=== PATIENT | male | born 1950 | race Caucasian/White ===

== ENCOUNTER → 2016-06-25 | Outpatient (CLI) | payer OTHER, MEDICARE | LOC: FIMAGING 10:09 | PROVIDERS: ATTEND Urology | DX: Z08 Encounter for follow-up examination after completed treatment for malignant neoplasm (principal); Z90.5 Acquired absence of kidney; Z85.528 Personal history of other malignant neoplasm of kidney ==

== ENCOUNTER → 2016-11-27 | Outpatient (CLI) | payer OTHER, MEDICARE | LOC: BHFA 10:00 | PROVIDERS: ATTEND Internal Medicine Cardiovascular Disease | DX: I35.0 Nonrheumatic aortic (valve) stenosis (principal); I25.10 Atherosclerotic heart disease of native coronary artery without angina pectoris; I10 Essential (primary) hypertension; E78.5 Hyperlipidemia, unspecified; I49.3 Ventricular premature depolarization ==

== ENCOUNTER → 2016-12-11 | Outpatient (CLI) | payer OTHER, MEDICARE | LOC: BHFA 14:00 | PROVIDERS: ATTEND Internal Medicine Cardiovascular Disease | DX: I35.1 Nonrheumatic aortic (valve) insufficiency (principal) ==

== ENCOUNTER 2016-12-26 17:09 | Inpatient (IN) | payer OTHER, MEDICARE ==
--- NOTE | 2016-12-26 17:33 | CPEKG ---
Heart Rate: 54 RR Interval: 1111 P-R Interval: 200 QRSD Interval: 110 QT Interval: 440 QTC Interval: 417 P [place]: 53 QRS [place]: -30 T Wave [place]: 69 EKG Severity - ABNORMAL ECG - EKG Impression: SINUS RHYTHM EKG Impression: SUPRAVENTRICULAR BIGEMINY EKG Impression: NONSPECIFIC INTRAVENTRICULAR CONDUCTION DELAY Electronically Signed By: Liliana Veliz 26-Dec-2016 21:35:01
[2016-12-26] MEDS ORDERED: ASPIRIN 81 MG CHEWABLE TAB ONE (17:34)
[2016-12-26] MEDS ORDERED: ASPIRIN 81 MG CHEWABLE TAB PO ONE (17:39)
[2016-12-26] MEDS ORDERED: MAG HYDROX/AL HYDROX/SIMETH 30 ML UDCUP PO ONE (17:39)
[2016-12-26] MEDS ORDERED: HYOSCYAMINE SULFATE 0.125 MG TAB PO ONE (17:39)
[2016-12-26] MEDS ORDERED: LIDOCAINE 2% VISCOUS 15 ML UDCUP PO ONE (17:39)
--- NOTE | 2016-12-26 17:39 | EDPHY ---
H & P Stated Complaint: CP x 2 hours, clammy. radiates to right collar bone HPI/ROS: CHIEF COMPLAINT: Chest pain HISTORY OF PRESENT ILLNESS: Patient complains of chest pain x2 hours. He was at rest when this started. Located to the left side of the chest. Radiates to the right collarbone. Rated as a 4/10. It has been constant in duration. Currently a 2/10. Was not worsened with exertion when he walked dog. It is associated with diaphoresis and feeling clammy. Minimal shortness of breath. No abdominal pain. Mild nausea at 1st. Currently no nausea. No vomiting. No fever. No recent travel , trauma or surgery. History is significant for coronary artery disease status post 3 stents 2 years ago, hypertension, dyslipidemia and 1 episode of pulmonary embolism 5 years ago. He was taken off of his Effient. He did take 81 mg of aspirin this morning. He took antacid after the pain started did not improved. The patient feels that this is related to acid reflux, although he does not have a diagnosis of this. No other associated complaints or modifying factors. REVIEW OF SYSTEMS: Ten systems reviewed and are negative unless otherwise noted in the HPI PCP: Dr. Rangel SPECIALISTS: Dr. Irina Munson PAST MEDICAL HISTORY: Hypertension, coronary artery disease with 3 stents, PE, Graves disease in remission, renal cell carcinoma status post surgical removal. Mitral valve regurgitation PAST SURGICAL HISTORY: Renal cell carcinoma excision, right lower extremity fracture repair, bilateral knee laparoscopy these SOCIAL HISTORY: Nonsmoker. Occasional alcohol. Occasional marijuana. Lives in [place]. Works in advertising FAMILY HISTORY: Noncontributory EXAMINATION General Appearance: Alert, no distress, mildly diaphoretic Head: normocephalic, atraumatic Eyes: Pupils equal and round, no conjunctival pallor or injection ENT, Mouth: Mucous membranes moist. Airway patent Neck: Normal inspection, supple, non-tender Respiratory: Lungs are clear to auscultation Cardiovascular: Regular rate and rhythm.. Pulses intact distally. There is a systolic murmur consistent with his diagnosis Gastrointestinal: Abdomen is soft and nontender. Back: non-tender, no bony abnormalities Neurological: GCS 15 A&O, nonfocal, normal gait Skin: Warm and mildly diaphoretic. No petechiae or purpura. No other rash Extremities: Nontender, no pedal edema Psychiatric: Mood and affect normal DIFFERENTIAL DIAGNOSES: Including but not limited to ACS, PE, reflux, pericarditis, myocarditis, stable angina, unstable angina MDM: 5:40 p.m. Chest pain of 2 hours duration. This is left-sided pain that radiates to the right. He was diaphoretic and clammy. He does have a history significant for coronary artery disease status post 3 stents 2 years ago and 1 episode of pulmonary embolism 5 years ago. Vital signs are stable. EKG does not show acute ischemia but is not completely normal. He is awake and alert no acute distress. Laboratory studies have been ordered. Chest x-ray ordered. Aspirin has been ordered. Additionally I have ordered GI cocktail and he is on a manager grocery. Dr. Veliz is aware the patient's history and physical examination. 6:15 p.m. Patient remains stable. D-dimer is negative. Troponin is pending. Chest x- ray is unremarkable as read by me. I have re-evaluated the patient. I discussed admission to the hospitalist his troponin is negative. He is agreeable with this plan. 6:40 p.m. Troponin is negative. Will discuss the case with hospitalist for admission. 6:55 p.m. Case discussed with hospitalist Dr. Sanchez. Patient will be admitted to her service. He is admitted in stable condition. Source: Patient Exam Limitations: No limitations - Personal History Current Tetanus/Diphtheria Vaccine: Yes Current Tetanus Diphtheria and Acellular Pertussis (TDAP): Yes Tetanus Vaccine Date: < 10 years - Medical/Surgical History Hx Asthma: No Hx Chronic Respiratory Disease: No Hx Diabetes: No Hx Cardiac Disease: Yes Hx Renal Disease: No Hx Cirrhosis: No Hx Alcoholism: No Hx HIV/AIDS: No Hx Splenectomy or Spleen Trauma: No Other PMH: grave's disease, DVT, PVCs, Cardiac stents - Social History Smoking Status: Never smoked Constitutional: Initial Vital Signs Temperature (C) 98.2 F 12/26/16 17:16 Heart Rate 68 12/26/16 17:16 Respiratory Rate 17 12/26/16 17:16 Blood Pressure 147/70 H 12/26/16 17:16 O2 Sat (%) 98 12/26/16 17:16 O2 Delivery Mode Room Air Allergies/Adverse Reactions: No Known Allergies Allergy (Verified 12/26/16 19:23) Home Medications: Medication Instructions Recorded Nitroglycerin [Nitrostat 0.4 mg 0.4 mg SL Q5M PRN #1 btl 03/02/14 (*)] Rosuvastatin Calcium [Crestor] 10 mg PO HS #30 tab 03/02/14 traZODone [traZODONE 50MG (RX)] 50 mg PO HS 11/27/14 Aspirin [Aspirin 81mg (*)] 81 mg PO DAILY 12/26/16 Valsartan [Diovan (*)] 80 mg PO DAILY 12/26/16 buPROPion XL [Wellbutrin Xl] 300 mg PO DAILY 12/26/16 Medical Decision Making - Diagnostics Imaging Results: Imaging Impressions Chest X-Ray 12/26/16 17:39 Impression: 1. No active cardiac pulmonary disease seen. Poor inspiration noted. - Data Points Laboratory Results: Laboratory Results 12/26/16 17:40 12/26/16 17:40 12/26/16 12/26/16 12/26/16 17:40 17:40 17:40 WBC 6.27 10^3/uL 10^3/uL (3.80-9.50) RBC 5.19 10^6/uL 10^6/uL (4.40-6.38) Hgb 15.0 g/dL g/dL (13.7-17.5) Hct 44.6 % % (40.0-51.0) MCV 85.9 fL fL (81.5-99.8) MCH 28.9 pg pg (27.9-34.1) MCHC 33.6 g/dL g/dL (32.4-36.7) RDW 13.8 % % (11.5-15.2) Plt Count 176 10^3/uL 10^3/uL (150-400) MPV 9.0 fL fL (8.7-11.7) Neut % (Auto) 54.4 % % (39.3-74.2) Lymph % (Auto) 32.4 % % (15.0-45.0) [place] % (Auto) 9.9 % % (4.5-13.0) Eos % (Auto) 2.4 % % (0.6-7.6) Baso % (Auto) 0.6 % % (0.3-1.7) Nucleat RBC Rel Count 0.0 % % (0.0-0.2) Absolute Neuts (auto) 3.41 10^3/uL 10^3/uL (1.70-6.50) Absolute Lymphs (auto) 2.03 10^3/uL 10^3/uL (1.00-3.00) Absolute Monos (auto) 0.62 10^3/uL 10^3/uL (0.30-0.80) Absolute Eos (auto) 0.15 10^3/uL 10^3/uL (0.03-0.40) Absolute Basos (auto) 0.04 10^3/uL 10^3/uL (0.02-0.10) Absolute Nucleated RBC 0.00 10^3/uL 10^3/uL (0-0.01) Immature Gran % 0.3 % % (0.0-1.1) Immature Gran # 0.02 10^3/uL 10^3/uL (0.00-0.10) PT 13.4 SEC SEC (12.0-15.0) INR 1.03 (0.83-1.16) APTT 25.9 SEC SEC (23.0-38.0) D-Dimer 0.29 ug/mLFEU ug/mLFEU (0.00-0.50) Sodium 137 mEq/L mEq/L (134-144) Potassium 4.0 mEq/L mEq/L (3.5-5.2) Chloride 103 mEq/L mEq/L (97-110) Carbon Dioxide 24 mEq/l mEq/l (22-31) Anion Gap 10 mEq/L mEq/L (8-16) BUN 20 mg/dL mg/dL (7-23) Creatinine 1.0 mg/dL mg/dL (0.7-1.3) Estimated GFR > 60 Glucose 77 mg/dL mg/dL (70-100) Calcium 10.2 mg/dL mg/dL (8.5-10.4) Troponin I < 0.012 ng/mL ng/mL (0.000-0.034) NT-Pro-B Natriuret Pep 48 pg/mL pg/mL (0-125) Lipase 209 IU/L IU/L (23-300) Medications Given: Rosuvastatin Calcium (Crestor) 10 mg PO HS [facility] Stop: 06/24/17 20:59 Last Admin: 12/26/16 21:58 Dose: 10 mg Trazodone HCl (Trazodone) 50 mg PO HS JOSEFA Stop: 06/24/17 20:59 Last Admin: 12/26/16 21:58 Dose: 50 mg Discontinued Medications Al Hydroxide/Mg Hydroxide (Maalox Susp) 30 ml PO ONCE ONE Stop: 12/26/16 17:40 Last Admin: 12/26/16 17:54 Dose: 30 ml Aspirin (Aspirin) 324 mg PO EDNOW ONE Stop: 12/26/16 17:40 Last Admin: 12/26/16 17:45 Dose: 324 mg Hyoscyamine Sulfate (Levsin, Hyomax-Sl) 0.25 mg PO ONCE ONE Stop: 12/26/16 17:40 Last Admin: 12/26/16 17:54 Dose: 0.25 mg Lidocaine (Lidocaine 2% Viscous) 15 ml PO ONCE ONE Stop: 12/26/16 17:40 Last Admin: 12/26/16 17:54 Dose: 15 ml Departure - Departure Disposition: [facility] Inpatient Acute Clinical Impression: Acute chest pain CAD (coronary artery disease) Qualifiers: Coronary Disease-Associated Artery/Lesion type: [place] artery [place] vs. transplanted heart: [place] heart Associated angina: with stable angina Qualified Code(s): I25.118 - Atherosclerotic heart disease of [place] coronary artery with other forms of angina pectoris Condition: Good
[2016-12-26 17:56] LABS: % IMMATURE GRANULYOCYTES 0.3 % (0.0-1.1); ABSOLUTE IMMATURE GRANULOCYTES 0.02 10^3/uL (0.00-0.10); ADD DIFF? NO; ADD MORPH? NO; ADD SCAN? NO; ATYPICAL LYMPHOCYTE FLAG 10 (0-99); FRAGMENT RBC FLAG 0 (0-99); HEMATOCRIT 44.6 % (40.0-51.0); LEFT SHIFT FLG 0 (0-99); LIPEMIA HEMOLYSIS FLAG 80 (0-99); MEAN CELL HEMOGLOBIN 28.9 pg (27.9-34.1); MEAN CELL HEMOGLOBIN CONCENTR. 33.6 g/dL (32.4-36.7); MEAN CELL VOLUME 85.9 fL (81.5-99.8); PLATELET CLUMPS FLAG 0 (0-99); PLATELET COUNT 176 10^3/uL (150-400); RED BLOOD CELL COUNT 5.19 10^6/uL (4.40-6.38); RED CELL DISTRIBUTION WIDTH 13.8 % (11.5-15.2)
[2016-12-26 18:00] LABS: INR 1.03 (0.83-1.16); PROTIME(PATIENT) 13.4 SEC (12.0-15.0)
[2016-12-26 18:01] LABS: APTT 25.9 SEC (23.0-38.0)
[2016-12-26 18:14] LABS: ANION GAP 10 mEq/L (8-16); CALCIUM 10.2 mg/dL (8.5-10.4); CARBON DIOXIDE 24 mEq/l (22-31); CHLORIDE 103 mEq/L (97-110); GLOMERULAR FILTRATION RATE > 60; GLUCOSE 77 mg/dL (70-100); SODIUM 137 mEq/L (134-144)
[2016-12-26 18:31] LABS: TROPONIN I < 0.012 ng/mL (0.000-0.034)
[2016-12-26] MEDS ORDERED: NITROGLYCERIN 0.4 MG BTL SL PRN (19:30)
[2016-12-26] MEDS ORDERED: ONDANSETRON 4 MG/2 ML VIAL IVP PRN (19:31)
[2016-12-26] MEDS ORDERED: ACETAMINOPHEN 325 MG TAB PO PRN (19:31)
--- NOTE | 2016-12-26 20:07 | GHP ---
[f rep st] HISTORY AND PHYSICAL DATE OF ADMISSION: 12/26/2016 CHIEF COMPLAINT: Chest pain. HISTORY OF PRESENT ILLNESS: The patient is a 66-year-old male, who complains of left-sided chest jordyn n that lasted 2 hours today. It was onset at rest, dull pain, radiated to his right collar bone, up his right neck. There is constant 2/10. At this point, chest pain has resolved. There is just a sl ight residual pain at the collar bone. It did not change with any exertion. He was very diaphoretic and clammy at onset. The pain was nonpleuritic without shortness of breath. PAST MEDICAL HISTORY: 1. Coronary artery disease, status post stents 2013. 2. History of DVT and pulmonary embolus x1. 3. Graves disease. 4. Mitral regurgitation. He has been told he will need a valve replacement in the future. 5. Renal cell carcinoma status post nephrectomy. PAST SURGICAL HISTORY: Spinal surgery. MEDICATIONS: Please see computer record for full detailed list. ALLERGIES: No known drug allergies. SOCIAL HISTORY: No smoking. Occasional alcohol. Occasional marijuana. Lives with his , and th ey have 3-year-old twins together. REVIEW OF SYSTEMS: Complete review of systems obtained. Review of systems negative regarding consti tutional, HEENT, GI, pulmonary, cardiovascular, , hematology, skin, muscular, endocrine, psych, exc ept for positives and negatives as in HPI. FAMILY HISTORY: Father had coronary disease in his 80s. PHYSICAL EXAMINATION: GENERAL: Well-developed, well-nourished male, in no acute distress. VITAL SI GNS: Temperature is 36.8, pulse 60, blood pressure 136/60, saturating 97% on room air. HEENT: Norm al conjunctivae. Pupils round, react to light. ENT normal ears and nose. Hearing intact. Normal t eeth. Oropharynx moist. NECK: Trachea midline. No thyromegaly. CHEST: Normal respiratory effort . Lungs clear to auscultation bilaterally. CARDIOVASCULAR: Regular rhythm. No murmur. No extremi ty edema. ABDOMEN: Soft, nontender. No hepatosplenomegaly. SKIN: Warm, dry, intact. No rash. M USCULOSKELETAL: No cyanosis or clubbing. Strength 5/5 upper and lower extremities. NEURO: Cranial nerves intact. Normal sensation to light touch. PSYCH: Alert and oriented x3. Normal affect. No rmal judgment and insight. Normal memory. LABORATORY DATA: White count 6.27, hematocrit 44.6, platelets 176, sodium 137, potassium 4.0, chlori de 103, bicarb 24, BUN 20, creatinine 1.0, glucose 77. Troponins negative. BNP is 48, INR is 1.03. D-dimer is negative. EKG viewed by me. My personal interpretation is bigeminy. No ST or T wave changes. Chest x-ray is negative. ASSESSMENT/PLAN: 1. Chest pain. He does have a history of previous coronary artery disease and stents in 2013. We w ill follow serial troponins and EKGs. We will continue with aspirin and statin, and check a lipid pa yoanna in the morning. We will order exercise stress test for morning. 2. Mitral regurgitation. He had an echocardiogram at [facility] within the last couple of weeks. So, I do not think it needs to be repeated at this time. The report is currently not available to me. 3. Graves disease. We will check a TSH. CODE STATUS: Full. ADMISSION STATUS: We will admit to observation. Anticipate discharge home tomorrow if stress testin g is negative. DVT PROPHYLAXIS: He is low risk. /[id number]/MODL
[2016-12-26] MEDS: ROSUVASTATIN CALCIUM 10 MG TAB PO SCH (21:58)
[2016-12-26] MEDS: traZODone 50 MG TAB PO SCH (21:58)
--- NOTE | 2016-12-27 06:33 | CPEKG ---
Heart Rate: 48 RR Interval: 1250 P-R Interval: 204 QRSD Interval: 106 QT Interval: 452 QTC Interval: 404 P [place]: 58 QRS [place]: -40 T Wave [place]: -30 EKG Severity - ABNORMAL ECG - EKG Impression: SINUS RHYTHM EKG Impression: MULTIPLE ATRIAL PREMATURE COMPLEXES EKG Impression: BORDERLINE IVCD WITH LAD EKG Impression: BORDERLINE T ABNORMALITIES, DIFFUSE LEADS Electronically Signed By: Murray Morris 29-Dec-2016 17:35:23
[2016-12-27 06:48] LABS: CHOLESTEROL 115 mg/dL (140-220); CHOLESTEROL/HDL RATIO 4.11 RATIO (1.00-4.97); HIGH DENSITY LIPOPROTEIN 28 mg/dL (40-65); LDL/HDL RATIO 2.18 RATIO (1.00-3.64); LOW DENSITY LIPOPROTEIN 61 mg/dL (80-100); NON-HIGH DENSITY LIPOPROTEIN 87 mg/dL (90-129); TRIGLYCERIDE 133 mg/dL (40-150); VERY LOW DENSITY LIPOPROTEINS 26 mg/dL (8-25)
[2016-12-27 06:59] LABS: TROPONIN I < 0.012 ng/mL (0.000-0.034)
[2016-12-27] MEDS: VALSARTAN 80 MG TAB PO SCH (09:26)
[2016-12-27] MEDS: buPROPion XL 150 MG TAB PO SCH (09:26)
[2016-12-27] MEDS: ASPIRIN 81 MG CHEWABLE TAB PO SCH (09:27)
[2016-12-27] MEDS ORDERED: FLU VACC QS 2017-18 (3YR+)/PF 0.5 ML SYR (FLUARIX QUAD) IM ONE (09:30)
[2016-12-27] MEDS ORDERED: PNEUMOC 13-VAL CONJ-DIP CRM/PF 0.5 ML SYR IM ONE (09:30)
--- NOTE | 2016-12-27 13:30 | CPR ---
[f rep st] NONINVASIVE CARDIAC PROCEDURE REPORT STUDY PERFORMED: Exercise treadmill of exercise treadmill MPI study. INDICATION FOR PROCEDURE: Patient with known history of coronary artery disease , hospital admission for chest pressure. PRE: After obtaining informed consent, the patient was placed on electrocardiogram. Initial EKG shows sinus rhythm, first-degree AV block, normal axis, poor R-wave progression in anterior leads, flattened T-waves in aVL. Premature atrial contractions. Patient denies any chest pain, shortness of breath, or symptoms suggesting of ischemia. Initial saturation greater than 96, initial blood pressure of 116/78, saturation 96% on room air. STRESS: The patient was placed on exercise treadmill, following standard Arnav protocol, with the following findings: 1. Patient exercised for 7 minutes and 40 seconds. 2. 8.9 METs. 3. Patient obtained a heart rate of 135 beats per minute, which was 88% of MPHR. 4. Patient had no chest pain or symptoms suggesting of ischemia throughout testing. 5. Patient had no significant ST shifts at peak exercise to suggest ischemia. 6. Patient was noted in the 3rd stage of exercise to have premature ventricular contractions, 1 noted couplet, and then converting into sinus rhythm with bigeminal PVCs. Patient was asymptomatic of the bigeminy PVCs. This lasted up to within 30 seconds of recovery, converting back to regular sinus rhythm. There was no VT or any other malignant arrhythmias noted. 7. BP variations: At rest 116/78, stress at peak exercise 172/76. 8. SPO2 remained greater than 90% throughout the testing. 9. Test was stopped due to maximum effort. 10. [place] treadmill score of 7, placing him at low cardiovascular risk. RECOVERY: Within 5 minutes, the patient's heart rate returned back to baseline. He remained asymptomatic. No further premature ventricular contractions were noted. He was noted at rest to resume having premature atrial contractions. IMPRESSION: A 66-year-old male with known history of coronary artery disease with previous stenting of the left anterior descending undergoing exercise MPI study for evaluation of ischemia due to onset of chest pressure and pain. Patient asymptomatic of symptoms suggesting of ischemia throughout the exercise treadmill, no significant ST shifts suggesting of ischemia during exercise, but the patient was noted to have 1 episode of premature ventricular couplet, and was noted to go into bigeminal preventricular contractions at peak exercise. He was asymptomatic during this time and reverted back to sinus rhythm within 30 seconds of recovery. His vital signs remained stable. Discussed with Dr. Hallman , with recommendation of further evaluation with MPI study and MPI imaging results. The patient's vital signs are stable and was sent to Nuclear Medicine for post-stress imaging. The hospitalist services have been notified of exercise treadmill testing results. /[id number]/MODL MTDD
--- NOTE | 2016-12-27 15:52 | ASMTCMCOM ---
CM Note CM Note Notes: Reviewed chart re: d/c poc, pt's progress. Pt admitted w/ CP, hx of CAD, DVT, Graves dx, MR, renal cell carcinoma. Pt lives w/ his and children. Nuclear med stress test pending. Anticipate pt will likely d/c home independently w/ family support when medically stable. CM will cont to follow. Date Signed: 12/27/2016 03:51 PM Electronically Signed By:Tatum Soler RN
--- NOTE | 2016-12-27 16:47 | PDCARCONS ---
Cardiology Consult Reason for Consult: 1) Chest pain. 2) History of CAD with prior PCI. 3) Abnormal nuclear perfusion stress images. Chief Complaint: Chest pain. Requesting Physician: Dr. Shelby Briceno History of Present Illness: Mr. Tracey is a 66-year-old male with a history of CAD and prior PCI. He presented to the hospital yesterday reporting an episode of left-sided chest discomfort that lasted approximately 2 hours. It was dull and radiated up to the right side of the neck. It was fairly mild being rated as 2 on the scale of 10. There was some diaphoresis initially. There was no shortness of breath, palpitations, or lightheadedness. He presented to the emergency room where his initial ECG was unremarkable. Overnight serial troponin levels all came back at < 0.012. Earlier today he underwent an exercise stress test with nuclear imaging. He exercised 8 minutes of the Arnav protocol reaching 88% MPHR without chest pain or ECG changes. Only the stress images have been performed up to this point. Dr. Briceno received a phone call from radiology that there was a significant inferior wall perfusion abnormality. She contacted me to discuss whether or not the patient should have cardiac catheterization this afternoon versus completing his study with rest imaging tomorrow. History Information - Allergies/Home Medication List Allergies/Adverse Reactions: No Known Allergies Allergy (Verified 12/26/16 19:23) Home Medications: traZODone [traZODONE 50MG (RX)] 50 mg PO HS 11/27/14 [Last Taken 12/25/16] Aspirin [Aspirin 81mg (*)] 81 mg PO DAILY 12/26/16 [Last Taken 12/26/16] Valsartan [Diovan (*)] 80 mg PO DAILY 12/26/16 [Last Taken 12/26/16] buPROPion XL [Wellbutrin Xl] 300 mg PO DAILY 12/26/16 [Last Taken 12/26/16] Past Medical History: - Past Medical History coronary artery disease, DVT, pulmonary embolism Additional medical history: Grave's disease. Cardiac history details: In February of 2014, a cardiac catheterization demonstrated significant disease of the left anterior descending involving the origin of the principal diagonal branch. He underwent bifurcation PCI using the "culotte" technique. This procedure was performed from the radial approach and limitations on guide catheter size precluded performing a thorough "kissing balloon" post- dilatation. He was taken back to the cardiac mechanical shop laborer approximately one week later and had additional postdilatation including "kissing balloon" performed via the femoral approach. Eleven months later, in January of 2015, he underwent a repeat catheterization to assess the patency of his stents in preparation to take him off of dual antiplatelet therapy in order to allow surgery for renal cell cancer to take place. His stents were widely patent at that time and there had been no progression of CAD in other territories. He also has a history of mitral regurgitation which is moderate to severe. He underwent an echocardiogram in our office on December 11. That study demonstrated his known mitral regurgitation and also demonstrated that his left ventricular end diastolic dimension had increased to 6 cm from a previous value of [address] Munson told him at his October appointment that he was likely nearing the time for valve surgery. He is currently scheduled for a transesophageal echocardiogram on January 12 and a followup appointment with Dr. Munson on . - Surgical History Additional surgical history: Back surgery. Nephrectomy - Family History Additional family history: Noncontributory - Social History Alcohol Use: Occasionally Drug Use: Marijuana Physical Exam Physical Exam: Temp Pulse Resp BP Pulse Ox 37.1 C 59 L 18 125/56 H 96 12/27/16 12:00 12/27/16 12:00 12/27/16 12:00 12/27/16 12:00 12/27/16 12:00 Constitutional: no apparent distress, appears nourished Eyes: anicteric sclera Ears, Nose, Mouth, Throat: moist mucous membranes Cardiovascular: regular rate and rhythym, no murmur, rub, or gallop Respiratory: no respiratory distress, clear to auscultation Gastrointestinal: normoactive bowel sounds, soft, non-tender abdomen, no palpable masses Skin: warm, normal color, no rashes or abrasions Neurologic: AAOx3 Psychiatric: interacting appropriately, not anxious Lymph, Heme, Immunologic: no cervical LAD, no supraclavicular LAD Lab and Imaging 12/26/16 17:40 12/26/16 17:40 WBC 6.27 10^3/uL (3.80-9.50) 12/26/16 17:40 RBC 5.19 10^6/uL (4.40-6.38) 12/26/16 17:40 Hgb 15.0 g/dL (13.7-17.5) 12/26/16 17:40 Hct 44.6 % (40.0-51.0) 12/26/16 17:40 MCV 85.9 fL (81.5-99.8) 12/26/16 17:40 MCH 28.9 pg (27.9-34.1) 12/26/16 17:40 MCHC 33.6 g/dL (32.4-36.7) 12/26/16 17:40 RDW 13.8 % (11.5-15.2) 12/26/16 17:40 Plt Count 176 10^3/uL (150-400) 12/26/16 17:40 MPV 9.0 fL (8.7-11.7) 12/26/16 17:40 Neut % (Auto) 54.4 % (39.3-74.2) 12/26/16 17:40 Lymph % (Auto) 32.4 % (15.0-45.0) 12/26/16 17:40 Lander % (Auto) 9.9 % (4.5-13.0) 12/26/16 17:40 Eos % (Auto) 2.4 % (0.6-7.6) 12/26/16 17:40 Baso % (Auto) 0.6 % (0.3-1.7) 12/26/16 17:40 Nucleat RBC Rel Count 0.0 % (0.0-0.2) 12/26/16 17:40 Absolute Neuts (auto) 3.41 10^3/uL (1.70-6.50) 12/26/16 17:40 Absolute Lymphs (auto) 2.03 10^3/uL (1.00-3.00) 12/26/16 17:40 Absolute Monos (auto) 0.62 10^3/uL (0.30-0.80) 12/26/16 17:40 Absolute Eos (auto) 0.15 10^3/uL (0.03-0.40) 12/26/16 17:40 Absolute Basos (auto) 0.04 10^3/uL (0.02-0.10) 12/26/16 17:40 Absolute Nucleated RBC 0.00 10^3/uL (0-0.01) 12/26/16 17:40 Immature Gran % 0.3 % (0.0-1.1) 12/26/16 17:40 Immature Gran # 0.02 10^3/uL (0.00-0.10) 12/26/16 17:40 PT 13.4 SEC (12.0-15.0) 12/26/16 17:40 INR 1.03 (0.83-1.16) 12/26/16 17:40 APTT 25.9 SEC (23.0-38.0) 12/26/16 17:40 D-Dimer 0.29 ug/mLFEU (0.00-0.50) 12/26/16 17:40 Sodium 137 mEq/L (134-144) 12/26/16 17:40 Potassium 4.0 mEq/L (3.5-5.2) 12/26/16 17:40 Chloride 103 mEq/L (97-110) 12/26/16 17:40 Carbon Dioxide 24 mEq/l (22-31) 12/26/16 17:40 Anion Gap 10 mEq/L (8-16) 12/26/16 17:40 BUN 20 mg/dL (7-23) 12/26/16 17:40 Creatinine 1.0 mg/dL (0.7-1.3) 12/26/16 17:40 Estimated GFR > 60 12/26/16 17:40 Glucose 77 mg/dL (70-100) 12/26/16 17:40 Calcium 10.2 mg/dL (8.5-10.4) 12/26/16 17:40 Troponin I < 0.012 ng/mL (0.000-0.034) 12/27/16 06:20 NT-Pro-B Natriuret Pep 48 pg/mL (0-125) 12/26/16 17:40 Triglycerides 133 mg/dL (40-150) 12/27/16 06:20 Cholesterol 115 mg/dL (140-220) L 12/27/16 06:20 Cholesterol Risk Factr 0.8 (0.2-1.0) 12/27/16 06:20 LDL Cholesterol, Calc 61 mg/dL (80-100) L 12/27/16 06:20 LDL Risk Factor 0.8 (0.2-1.0) 12/27/16 06:20 VLDL Cholesterol 26 mg/dL (8-25) H 12/27/16 06:20 Non-HDL Cholesterol 87 mg/dL (90-129) L 12/27/16 06:20 HDL Cholesterol 28 mg/dL (40-65) L 12/27/16 06:20 LDL/HDL Ratio 2.18 RATIO (1.00-3.64) 12/27/16 06:20 Cholesterol/HDL Ratio 4.11 RATIO (1.00-4.97) 12/27/16 06:20 Lipase 209 IU/L (23-300) 12/26/16 17:40 TSH 1.860 uIU/mL (0.465-4.680) 12/27/16 06:20 Visualized and Interpreted Chest x-ray results: Yes Chest X-ray Interpretation: no infiltrate Visualized and Interpreted EKG results: Yes EKG additional interpertation: Normal sinus rhythm. No Q waves or conduction system abnormalities. No ischemic changes. A/P Assessment: This is a 66-year-old male who has a history of CAD with prior bifurcation PCI of the LAD-diagonal branch. He presents with somewhat atypical chest discomfort. He has ruled out for an acute coronary syndrome. There has been no evidence of CHF and no arrhythmias other than PVCs during his stress test. He also has a history of mitral regurgitation and a recent echocardiogram demonstrates that his left ventricle is beginning to dilate. He does have some dyspnea with exertion. Earlier today he underwent a stress test. He did not experience any chest discomfort and did not have any ischemic ECG changes. The nuclear images have not been formally reported but results were relayed to his hospitalist regarding an inferior defect. I have reviewed the perfusion scans and there appears to be a large territory affected in the inferior wall. However , I am suspicious that this may end up representing a false positive. I reviewed his previous catheterization studies. Apart from his LAD-diagonal disease, the rest of his coronary circulation is relatively normal appearing. He has a very large right coronary artery with significant inferior wall branches. If his nuclear stress test ends up suggesting reversibility and indicating a flow-limiting stenosis of this vessel, his stress test should have been markedly abnormal. Alternatively, if his resting scan demonstrates a fixed defect indicating a possible myocardial infarction, then a definite wall motion abnormality should have been seen on his echocardiogram from December 11 or. if you postulate that an [place] event occurred since the date of his echo, his troponin still should be significantly elevated. He is amenable to staying overnight and completing his imaging study tomorrow. I expect that he can then potentially be discharged. I do not think that he needs to go to the cardiac mechanical shop laborer this afternoon. Finally, I suspect that he WILL be going to the mechanical shop laborer sometime in the near future for preoperative angiography in preparation for valve surgery.
--- NOTE | 2016-12-27 16:53 | HOSPPROG ---
Hospitalist Progress Note Assessment/Plan: 66 yo male with h/o CAD and prior stents admitted with chest pain. Trops neg. Nuc study with inferior wall defect. Unclear if this may represent diaphragmatic shadow. Appreciate cardiology consult. Will need resting images in am. Will keep NPO again after midnight in case he needs angiogram. Discussed with Dr. Garner. -cont ASA, statin -resting nuc images in am MR - will require cath at some point prior to valve replacement H/O RCC s/p nephrectomy Full code Dispo - change to inpt for ongoing evaluation of chest pain and abnormal nuc study Subjective: Pt feels well. Denies CP or SOB. No complaints. Objective: Vital Signs Temp Pulse Resp BP Pulse Ox 36.8 C 69 19 123/59 H 95 12/27/16 16:49 12/27/16 16:49 12/27/16 16:49 12/27/16 16:49 12/27/16 16:49 12/26/16 12/27/16 12/28/16 05:59 05:59 05:59 Intake Total 150 Balance 150 PT 13.4 SEC (12.0-15.0) 12/26/16 17:40 INR 1.03 (0.83-1.16) 12/26/16 17:40 - Physical Exam Constitutional: no apparent distress Ears, Nose, Mouth, Throat: hearing normal Cardiovascular: regular rate and rhythym Respiratory: no respiratory distress Musculoskeletal: full muscle strength Neurologic: AAOx3 Psychiatric: interacting appropriately ICD10 Worksheet Patient Problems: Problems Problem Status Onset Acute chest pain Acute CAD (coronary artery disease) Acute Atelectasis of both lungs Acute Coronary artery disease Acute History of placement of stent in LAD coronary artery Acute Postoperative hypoxia Acute Renal cell carcinoma Acute Renal mass, left Acute
[2016-12-27] MEDS: ROSUVASTATIN CALCIUM 10 MG TAB PO SCH (20:04)
[2016-12-27] MEDS: traZODone 50 MG TAB PO SCH (22:26)
[2016-12-28 07:14] VITALS: BP 107/67; PULSE 64; RESP 18; TEMP 97.9; O2SAT 95
[2016-12-28] MEDS: ASPIRIN 81 MG CHEWABLE TAB PO SCH (07:47)
[2016-12-28] MEDS: buPROPion XL 150 MG TAB PO SCH (07:47)
[2016-12-28] MEDS: VALSARTAN 80 MG TAB PO SCH (07:48)
--- NOTE | 2016-12-28 13:07 | ASDISCHSUM ---
Discharge Information Plan Status:Home with No Needs Medically Cleared to Leave:12/28/2016 Discharge Date:12/28/2016 12:00 PM CM D/C Disposition:Home, Routine, Self-Care ADT D/C Disposition:Home, Routine, Self-Care Projected Discharge Date:12/28/2016 12:00 PM Transportation at D/C:Family Discharge Delay Reason: Follow-Up Date:12/28/2016 12:00 PM Discharge Slot:2 - 12:01 pm - 18:00 pm Final Diagnosis:CP, MR, Graves dx Placement Information Patient Contact Information Contact Name:MARIA L Relationship: Address:[address] City:[place] Alternate Phone: State/Zip Code:[place] [address] Email: Financial Information Financial Class: Primary Plan Desc:MEDICARE OUTPATIENT Primary Plan Number:[id number] Secondary Plan Desc:[employer]/MDR SUPPLEMENT Secondary Plan Number:[id number] Assessment Information [facility] CM Progress Note CM Note CM Note Notes: Reviewed chart re: d/c poc, pt's progress. Pt admitted w/ CP, hx of CAD, DVT, Graves dx, MR, renal cell carcinoma. Pt lives w/ his and children. Nuclear med stress test pending. Anticipate pt will likely d/c home independently w/ family support when medically stable. CM will cont to follow. Date Signed: 12/27/2016 03:51 PM Electronically Signed By:Tatum Soler RN [facility] CM Progress Note CM Note CM Note Notes: Reviewed chart re: d/c poc, pt's progress. Pt to discharge home today w/ family support and no identified needs. IM not signed; admission <48 hrs. Pt to f/u as directed. CM avail for any further issues or concerns. Date Signed: 12/28/2016 01:06 PM Electronically Signed By:Tatum Soler RN Intervention Information Intervention Type:*Occurence 72 Date of Service:12/26/2016 07:30 PM Patient Type:Inpatient Staff Member:MARLYN Cha, Teresa Hours:0.25 Discipline: Severity:1 (0-1 Hours) Comment:Occ 72 for 12/26/2016 as patient discha rged 12/28/16 11:03 (< 2 [place] LOS after patien t admission status changed from observation to inpatient).
--- NOTE | 2016-12-28 23:09 | GDS ---
[f rep st] DISCHARGE SUMMARY DISCHARGE DIAGNOSES: 1. Chest pain, resolved. 2. Coronary artery disease with prior stent. 3. Mitral regurgitation. CONSULTANTS: Boubacar Garner MD, Cardiology. HISTORY: For details, please see the history and physical dated December 26, 2016. In brief, the marylu salas is a 66-year-old male with a history of coronary artery disease and prior stenting in 2013, wh o presents to the emergency department with chest pain associated with diaphoresis and radiation, whi ch was nonpleuritic and there was no associated shortness of breath. The patient was admitted to the hospital for further evaluation. HOSPITAL COURSE: The patient was admitted to the cardiac telemetry unit. He had serial negative tro ponins. His EKG was nonischemic and showed bigeminy. Given his cardiac history, he underwent a [facility] myocardial perfusion scan which revealed a mildly decreased ejection fraction of 50%, di ffuse hypokinesis of the left ventricle and decreased uptake on stress imaging involving the inferior wall of the left ventricle. A cardiology consultation was obtained for consideration of angiogram v ersus resting images on the nuclear medicine study in the morning. Dr. Garner' impression was that this may have been a false positive and urgent catheterization was deferred. Resting images were pe rformed the following morning and revealed that the decreased uptake in the inferior wall of the left ventricle on prior stress imaging appeared to be compatible with diaphragmatic attenuation versus a fixed infarct without evidence of underlying ischemia. Therefore, the patient did not undergo urgent cardiac catheterization. It is noted that he will likely need angiography in the near future in pre paration for valve surgery for his mitral regurgitation. The patient remained chest pain-free and is hemodynamically stable on the day of discharge. DISPOSITION: The patient is discharged home in stable condition. FOLLOWUP: 1. The patient will follow up with [facility] January [address]ogram[address] 2[address]. Irina Munson at [facility] on January 24. DISCHARGE MEDICATIONS: Please see Jalbum for completed outpatient medication list. He will contin ue all outpatient medications as previously prescribed. There are no new medications on discharge. /[id number]/MODL
== END 2016-12-28 12:00 | disposition home or self-care (01) | DRG 313 ==
LOC: F2W 19:55 → OBSVTOIN 12-27 16:47
PROVIDERS: ADMIT Internal Medicine; ATTEND Internal Medicine
DX: R07.89 Other chest pain (principal); I25.10 Atherosclerotic heart disease of native coronary artery without angina pectoris; Z95.1 Presence of aortocoronary bypass graft; I10 Essential (primary) hypertension; E78.5 Hyperlipidemia, unspecified; E05.00 Thyrotoxicosis with diffuse goiter without thyrotoxic crisis or storm; I34.0 Nonrheumatic mitral (valve) insufficiency; Z86.711 Personal history of pulmonary embolism; Z90.5 Acquired absence of kidney; Z85.528 Personal history of other malignant neoplasm of kidney; Z86.718 Personal history of other venous thrombosis and embolism; Z23 Encounter for immunization
CPT/HCPCS: A9500; G0008; G0009; G0378

== ENCOUNTER 2017-01-12 09:46 | Day surgery (SDC) | payer OTHER, MEDICARE ==
[2017-01-12] MEDS ORDERED: NS 500 ML IV ONE (09:48)
[2017-01-12] MEDS ORDERED: fentaNYL 100 MCG/2 ML INJ IVP ONE (09:48)
[2017-01-12] MEDS ORDERED: BENZOCAINE UNIT DOSE SPRAY HURRICAINE MM ONE (09:48)
[2017-01-12] MEDS ORDERED: MIDAZOLAM 2 MG/2 ML VIAL IVP ONE (09:48)
[2017-01-12] MEDS ORDERED: MIDAZOLAM 2 MG/2 ML VIAL ONE ×2 (10:31→10:32)
[2017-01-12] MEDS ORDERED: fentaNYL 100 MCG/2 ML INJ ONE (10:32)
--- NOTE | 2017-01-12 11:39 | PDPROPOC ---
Sedation Plan of Care Sedation Plan of Care: vital signs stable, mental status noted, patient educated of risks, benefits, alternatives, patient can tolerate sedation ASA Classification: ASA 2 Planned drugs: fentanyl, midazolam Mallampati Score: Class 2 Mallampati Reference Image: Patient passed 3-3-2 rule?: Yes
--- NOTE | 2017-01-12 11:41 | PDGENHP ---
History & Physical Chief Complaint: Valvular heart disease History of Present Illness: 66 yo M with CAD, VHD (AR and MR) with progressive valvular regurgitation and exertional HARVEY. Presents for ELOY for further evaluation Pertinent Past, Social, Family History: see Aniket. Reviewed today Relevant Physical Exam: RRR soft early diasotlic murmur LLSB. Lungs CTAB Cardiorespiratory Assessment: stable
--- NOTE | 2017-01-12 17:39 | ECHO ---
[email or web address] [address] Main: [phone] Fax: Transesophageal Echocardiography Name: KELSEY RODRIGUEZ MR#: [id number] Study Date: 01/12/2017 Study Time: 11:49 AM Date of : 1950 Age: 66 year(s) Height: ( ) Weight: ( ) BSA: Gender: Male Examination: ELOY Indication: Eval mitral and aortic valves Image Quality: Contrast: Requested by: Irina Munson Heart Rate: Rhythm: BP: / Procedure Staff Booking Clerk: Reading Physician: Irina Munson Requesting Provider: ELOY Exam Details Conclusions: The ejection fraction is visually estimated to be 55 %. An agitated saline study was performed and was negative for intracardiac shunting. No thrombus in left appendage. There is moderate eccentric jet of mitral regurgitation. This is related to focal prolapse of the posterior P2 segment. Jet is anteriorly directed. The aortic valve is tri-leaflet. Severe aortic valve regurgitation is present. Mildly dilated. Ascending aorta at 4.2 cm Measurements: Chambers Valvular Assessment AV/MV Valvular Assessment TV/PV Normal Normal Normal Name Value Range Name Value Range Name Value Range Visual EF: 55 % Additional Measurements: Findings: Left Ventricle: The ejection fraction is visually estimated to be 55 %. Left Atrium: Patient: KELSEY RODRIGUEZ Study Date: 01/12/2017 Page 1 of 2 11:49 AM An agitated saline study was performed and was negative for intracardiac shunting. Left Atrial Appendage: No thrombus in left appendage. Right Atrium: Possible Chiari's network in right atrium. Mitral Valve: There is moderate eccentric jet of mitral regurgitation. This is related to focal prolapse of the posterior P2 segment. Jet is anteriorly directed. Aortic Valve: The aortic valve is tri-leaflet. Severe aortic valve regurgitation is present. Tricuspid Valve: Trivial to mild tricuspid valve regurgitation. Aorta: Mildly dilated. at 4.2 cm l1n (No Signature Object) Patient: KELSEY RODRIGUEZ Study Date: 01/12/2017 Page 2 of 2 11:49 AM [id number]
== END 2017-01-12 13:43 | disposition home or self-care (01) ==
LOC: FCATH 09:46
PROVIDERS: ATTEND Internal Medicine Cardiovascular Disease
DX: I38 Endocarditis, valve unspecified (principal)
CPT/HCPCS: J2250; J3010

== ENCOUNTER → 2017-07-23 | Outpatient (CLI) | payer OTHER, MEDICARE | LOC: CIMAGING 10:13 | PROVIDERS: ATTEND Urology | DX: N28.1 Cyst of kidney, acquired (principal); Z85.528 Personal history of other malignant neoplasm of kidney | CPT/HCPCS: 76770-PO ==

== ENCOUNTER → 2018-02-04 | Outpatient (CLI) | payer OTHER, MEDICARE ==
[~2018-02-04] MED LIST: IOPAMIDOL (ISOVUE-300) 100 ML BTL ONE
== END ==
LOC: FIMAGING 09:30
PROVIDERS: ATTEND Urology
DX: C64.2 Malignant neoplasm of left kidney, except renal pelvis (principal); Q64.9 Congenital malformation of urinary system, unspecified; Z90.5 Acquired absence of kidney; N20.0 Calculus of kidney; I70.0 Atherosclerosis of aorta
CPT/HCPCS: 74170; Q9967; 82565-PO